=== PATIENT | male | born 1970 | race Caucasian/White ===

== ENCOUNTER 2020-11-11 11:16 | Emergency (ER) | payer MEDICAID ==
[~2020-11-11] VITALS: Ht 167.6 cm; Wt 68.9 kg
[2020-11-11 11:20] VITALS: BP 141/81
--- NOTE | 2020-11-11 11:30 | NUR ---
50 YO M BIB SELF FOR C/C OF 2/10 CHEST PAIN RADIATING TO LEFT SHOULDER X3 WEEKS. PT STATES HIS PAIN WORSENS AT NIGHT. PT DENIES DIZZINESS, SOB, N/V, NO EDEMA VISUALIZED. S1S2 HEARD, LUNG SOUNDS CLEAR THROUGHOUT. PT DENIES OTC MEDS FOR PAIN. PT PLACED ON CONTRACTS SPECIALIST, BED LOCKED AND IN LOWEST POSITION. SIDE RAILS X1. CONTRACTS SPECIALIST/PULSE OX IN PLACE. MED HX: HTN NKA
--- NOTE | 2020-11-11 11:30 | NUR ---
EKG AT BEDSIDE
--- NOTE | 2020-11-11 11:44 | NUR ---
dr. telles at bedside
[2020-11-11] MEDS ORDERED: ASPIRIN 325 MG TAB PO ONE (12:10)
--- NOTE | 2020-11-11 12:21 | NUR ---
LAB AT BEDSIDE
[2020-11-11 12:26] LABS: BASOPHILS % (AUTO) 0.5 % (0.0-2.0); EOSINOPHILS # (AUTO) 0.2 K/uL (0-0.4); EOSINOPHILS % (AUTO) 2.3 % (0.0-4.0); HEMATOCRIT 43.8 % (36-52); LYMPHOCYTES # (AUTO) 2.2 K/uL (2.0-11.5); LYMPHOCYTES % (AUTO) 25.2 % (20.5-51.1); MEAN CORPUSCULAR HEMOGLOBIN 30 pg (27-31); MEAN CORPUSCULAR HGB CONC 34 g/dL (33-37); MEAN CORPUSCULAR VOLUME 87.1 fL (80-94); MONOCYTES # (AUTO) 0.6 K/uL (0.8-1.0); MONOCYTES % (AUTO) 7.3 % (1.7-9.3); NEUTROPHILS # (AUTO) 5.7 K/uL (1.8-7.7); NEUTROPHILS % (AUTO) 64.7 % (42.2-75.2); PLATELET COUNT (AUTO) 290 K/uL (140-450); RED BLOOD CELL COUNT(AUTO) 5.02 MIL/uL (4.20-6.10); RED CELL DISTRIBUTION WIDTH 13.2 % (11.6-13.7); WHITE BLOOD COUNT (AUTO) 8.7 K/uL (4.8-10.8)
[2020-11-11 12:42] LABS: ALBUMIN 4.1 g/dL (3.4-5.0); CARBON DIOXIDE 31.9 mmol/L (21-32); CREATININE 1.2 mg/dL (0.6-1.3); POTASSIUM 3.9 mmol/L (3.5-5.1); TOTAL BILIRUBIN 0.4 mg/dL (0.0-1.0)
--- NOTE | 2020-11-11 14:00 | NUR ---
LAB AT BEDSIDE
--- NOTE | 2020-11-11 14:10 | NUR ---
EKG AT BEDSIDE
[2020-11-11] MEDS ORDERED: NAPR-54 PO (14:55)
[2020-11-11 15:30] VITALS: BP 130/78
== END 2020-11-11 15:30 | disposition home or self-care (01) ==
LOC: MED 11:16
DX: R07.9 Chest pain, unspecified (principal); I10 Essential (primary) hypertension
CPT/HCPCS: 36415; 71045; 80053; 83690; 84484; 85025; 93005; 99285

== ENCOUNTER 2022-04-03 01:00 | Emergency (ER) | payer SELFPAY ==
[~2022-04-03] VITALS: Ht 167.6 cm; Wt 77.1 kg
[~2022-04-03 01:00] MED LIST: NAPR-54 PO
[2022-04-03 01:04] VITALS: BP 176/110
--- NOTE | 2022-04-03 01:08 | NUR ---
to lobby a/w bed ambulatory
--- NOTE | 2022-04-03 01:10 | NUR ---
PT TO BED #8 AMBULATORY
--- NOTE | 2022-04-03 01:28 | NUR ---
51YR OLD MALE BIB SELF C/O "NOT FEELING WELL" DIZZY X1DAY. DENIES CP OR SOB. PT A&OX4. DENIES ANY PAIN. HX OF HTN. PT ON CARIDAC MONITOR AT BEDSIDE. NO DISTRESS NOTED. EKG DONE. HOB OF ELEVATED PT WOLOF SPEAKING ONLY NKDA HTN
[2022-04-03] MEDS ORDERED: lisinopriL 20 MG TAB PO ONE (01:45)
--- NOTE | 2022-04-03 03:15 | NUR ---
PT AMBULATE TO BATHROOM STEADY GAIT. DENIES PAIN. PENDING DC PAPERWORK
--- NOTE | 2022-04-03 03:52 | NUR ---
Patient discharged with v/s stable. Written and verbal after care instructions given and explained. Patient verbalized understanding. Ambulatory with steady gait. All questions addressed prior to discharge. Advised to follow up with PMD.
[2022-04-03] MEDS ORDERED: HYDR-2853 PO (03:53)
[2022-04-03 03:56] VITALS: BP 130/86
--- NOTE | 2022-04-03 04:00 | NUR ---
The patient's care was reviewed and supervised by Shira Billings RN.
== END 2022-04-03 03:56 | disposition home or self-care (01) ==
LOC: MED 01:00
DX: I10 Essential (primary) hypertension (principal); R51.9 Headache, unspecified; Z79.899 Other long term (current) drug therapy
CPT/HCPCS: 93005; 99285